=== PATIENT | female | born 1950 | race Caucasian/White ===

== ENCOUNTER 2025-03-02 09:22 | Outpatient (CLI) | payer MEDICARE | END 2025-03-02 09:23 | disposition home or self-care (01) | LOC: CSHMRI 09:22 | PROVIDERS: ATTEND Surgery | DX: Z01.818 Encounter for other preprocedural examination (principal); M47.26 Other spondylosis with radiculopathy, lumbar region; Z95.0 Presence of cardiac pacemaker; M48.061 Spinal stenosis, lumbar region without neurogenic claudication; M48.07 Spinal stenosis, lumbosacral region | CPT/HCPCS: 71046; 72100; 72148 ==